=== PATIENT | male | born 1985 | race Caucasian/White ===

== ENCOUNTER 2021-05-22 08:59 | Emergency (ER) | payer OTHER, SELFPAY ==
[2021-05-22 09:08] VITALS: BP 141/88; PULSE 91; RESP 16; TEMP 37.3; O2SAT 99
--- NOTE | 2021-05-22 10:02 | ED.NAVMDI ---
HPI - Nausea/Vomiting/Diarrhea General Chief complaint: Nausea/Vomiting/Diarrhea Stated complaint: chills/cervantes/fever Time Seen by Provider: 05/22/21 10:02 Source: patient Mode of arrival: ambulatory Limitations: no limitations History of Present Illness HPI Narrative: Cedric Lees is a 36 yo male with no PMH who comes to [facility] after having vomiting x 1, chills last night. Ate and drank after the episode. States is unsure why he really needs to be seen, other than his wanted him to come in Related Data Home Medications Medication Instructions Recorded Confirmed No Home Medications 05/22/21 05/22/21 Allergies Allergy/AdvReac Type Severity Reaction Status Date / Time erythromycin base Allergy Hives Verified 05/22/21 10:00 Review of Systems Review of Systems: CONSTITUTIONAL: Denies fever, chills, sweats. EYES: Denies visual changes, redness, discharge. ENT: Denies rhinorrhea, congestion, sore throat, otalgia. CARDIOVASCULAR: Denies chest pain, palpitations, edema. RESPIRATORY: Denies dyspnea, wheezing, cough GASTROINTESTINAL: Denies abdominal pain, nausea, vomiting, diarrhea. GENITOURINARY: Denies dysuria, hematuria, abnormal discharge SKIN: Denies rash or itching. NEUROLOGIC: Denies numbness, or focal weakness. PSYCHIATRIC: Denies anxiety or depression. History of vomiting x1 and chills; normal p.o. intake now PMFSH Past Medical History Medical History No acute medical problems Social History Social History (Updated 05/22/21 @ 10:12 by Amelia Galdamez CNP) Smoking status: Current some day smoker Alcohol intake: current Comments At time of signature, I agree with nursing past medical, surgical, social and family history. There is no relevant family history pertinent to the presenting complaint. Exam Narrative: GENERAL: This is a well-nourished, well-developed patient, in no distress. HEAD: normocephalic, atraumatic. EYES: Sclera clear/white. Vision is grossly intact. EARS: External ears normal. Hearing grossly intact. NOSE: External nose normal without nasal discharge, nares without redness, no rhinorrhea. THROAT: Mucous membranes moist, NECK: Neck supple, non-tender CARDIOVASCULAR: Regular rate and rhythm without murmurs, gallops, or rubs. RESPIRATORY: Clear to auscultation. Breath sounds equal bilaterally. No wheezes, rales, or rhonchi. GASTROINTESTINAL: not done SKIN: warm, intact with no suspicious lesions or rash, good texture and turgor. NEURO: awake, alert, and oriented to person, place and time. There were no obvious focal neurologic abnormalities. Steady gait EXTREMITIES: Normal range of motion. BACK: Nontender without deformity Course Course Emergency Course: Patient here for evaluation of vomiting x1 last night now has normal p.o. intake Level of Care: Express Care Visit Vital Signs Vital signs: Vital Signs Temperature 99.2 F 05/22/21 09:08 Pulse Rate 91 05/22/21 09:08 Respiratory Rate 16 05/22/21 09:08 Blood Pressure 141/88 H 05/22/21 09:08 Pulse Oximetry 99 05/22/21 09:08 Temperature 99.2 F 05/22/21 09:08 Pulse Rate 91 05/22/21 09:08 Respiratory Rate 16 05/22/21 09:08 Blood Pressure 141/88 H 05/22/21 09:08 Pulse Oximetry 99 05/22/21 09:08 MDM - Nausea/Vomiting/Diarrhea Differential Diagnosis Differential diagnosis: Likely traveler's diarrhea, food poisoning and other Critical Care Time Critical Care Time Critical Care Time: No Discharge Plan Discharge Clinical Impression: Vomiting alone Patient Disposition: Home, Self-Care Condition: Stable Instructions: Dehydration (ED) Additional Instructions: Continue fluid intake and eat bland foods today Prescriptions: No Action No Home Medications RF: 0 Follow-up/Referrals: Choco,CARMELA Conroy [Primary Care Provider] - Stand Alone Forms: Work/School Release IP Time of Disposition:
== END 2021-05-22 10:55 | disposition home or self-care (01) ==
PROVIDERS: Emergency Provider Nurse Practitioner; PCP Nurse Practitioner Family
DX: R11.10 Vomiting, unspecified (principal); F17.200 Nicotine dependence, unspecified, uncomplicated
CPT/HCPCS: 99211; G0463